=== PATIENT | male | born 1990 | race Caucasian/White ===

== ENCOUNTER 2018-02-21 11:51 | Observation (INO) | payer OTHER ==
[~2018-02-21] VITALS: Ht 177.8 cm; Wt 69.0 kg
[~2018-02-21 11:51] MED LIST: CARA1TAB6 PO; PROT40TA PO; TYLE325T PO; ZOFR4TAB3 SL
[2018-02-21 12:03] VITALS: BP 119/61; PULSE 70; RESP 14; TEMP 98.6; O2SAT 99
[2018-02-21 13:19] VITALS: BP 132/71; PULSE 71; RESP 18; TEMP 99.5; O2SAT 99
--- NOTE | 2018-02-21 13:35 | PD ---
HPI Chief Complaint: GI Complaint Time Seen by Provider: 13:18 Travel History International Travel<30 days: No Contact w/Intl Traveler<30days: No Traveled to known affect area: No History of Present Illness HPI Patient is a 27 year old male presents to the ER for evaluation of emesis/ regurgitation. patient states his symptoms started 5 days ago after eating a sausage. He states since then he's had problems keeping food down. He states that finally he has been able to tolerated clear liquids but anything more substantial comes back up within 30 seconds of ingestion. Patient denies drooling. Also endorses fever to 102F. Had some epigastric pain which has largely resolved since ER visit 2 days ago. Patient was seen at our ER facility 2 days ago in [place]. He was febrile then to 102.8. Workup included basic labs, ct scan which was reassuring. Instructed to follow up with a GI doctor but when he called could not get in for several weeks. Patient was prescribed sucralfate, zofran, protonix which he states has been taking and it got rid of his pain and nausea but still unable to tolerate PO. He states that since he cannot keep anything down decided to come in to be seen again. PFSH Past Medical History Medical History: Denies Significant Hx Past Surgical History Surgical History: No Previous Surgery Social History Alcohol Use: No Tobacco Use: No Substance Use: No Allergies-Medications (Allergen,Severity, Reaction): Coded Allergies: No Known Allergies (Verified Allergy, Unknown, 02/19/18) Reported Meds & Prescriptions Reported Meds & Active Scripts Active Tylenol (Acetaminophen) 325 Mg Tab 650 Mg PO Q6H PRN Zofran Odt (Ondansetron Odt) 4 Mg Tab 4 Mg SL Q6HR PRN Protonix (Pantoprazole Sodium) 40 Mg Tab 40 Mg PO DAILY Carafate (Sucralfate) 1 Gram Tab 1 Gm PO TID On empty stomach Review of Systems Except as stated in HPI: all other systems reviewed are Neg Physical Exam Narrative GENERAL: WD/WN in nad. SKIN: Warm and dry. HEAD: Atraumatic. Normocephalic. EYES: Pupils equal and round. No scleral icterus. No injection or drainage. ENT: No nasal bleeding or discharge. Mucous membranes pink and moist. NECK: Trachea midline. No JVD. CARDIOVASCULAR: Regular rate and rhythm. RESPIRATORY: No accessory muscle use. Clear to auscultation. Breath sounds equal bilaterally. GASTROINTESTINAL: Abdomen soft, non-tender, nondistended. Hepatic and splenic margins not palpable. MUSCULOSKELETAL: Extremities without clubbing, cyanosis, or edema. No obvious deformities. NEUROLOGICAL: Awake and alert. No obvious cranial nerve deficits. Motor grossly within normal limits. Five out of 5 muscle strength in the arms and legs. Normal speech. PSYCHIATRIC: Appropriate mood and affect; insight and judgment normal. Data Data Last Documented VS Vital Signs Date Time Temp Pulse Resp B/P (MAP) Pulse Ox O2 Delivery O2 Flow Rate FiO2 02/21/18 14:15 78 16 116/68 (84) 99 Room Air 02/21/18 13:19 99.5 Orders Orders Basic Metabolic Panel (Bmp) (02/21/18 13:34) Complete Blood Count With Diff (02/21/18 13:34) Iv Access Insert/Monitor (02/21/18 13:34) Ecg Monitoring (02/21/18 13:34) Oximetry (02/21/18 13:34) Sodium Chloride 0.9% Flush (Ns Flush) (02/21/18 13:45) Consult Gastroenterology (02/21/18 ) Consent (02/21/18 14:17) Diet Npo Except Meds (02/22/18 Breakfast) Pantoprazole Inj (Protonix Inj) (02/21/18 14:30) (Hub Use Only)Inp Phy Cons/Ref (02/21/18 ) Admit Order (Ed Use Only) (02/21/18 ) Place In Observation (02/21/18 ) Vital Signs (Adult) HITESH.Q4H (02/21/18 15:00) Activity Oob With Assistance (02/21/18 15:00) Labs Laboratory Tests Test 02/21/18 13:45 White Blood Count 5.2 TH/MM3 Red Blood Count 4.95 MIL/MM3 Hemoglobin 14.9 GM/DL Hematocrit 43.6 % Mean Corpuscular Volume 88.0 FL Mean Corpuscular Hemoglobin 30.1 PG Mean Corpuscular Hemoglobin Concent 34.2 % Red Cell Distribution Width 12.3 % Platelet Count 162 TH/MM3 Mean Platelet Volume 8.0 FL Neutrophils (%) (Auto) 71.3 % Lymphocytes (%) (Auto) 15.6 % Monocytes (%) (Auto) 12.0 % Eosinophils (%) (Auto) 0.7 % Basophils (%) (Auto) 0.4 % Neutrophils # (Auto) 3.7 TH/MM3 Lymphocytes # (Auto) 0.8 TH/MM3 Monocytes # (Auto) 0.6 TH/MM3 Eosinophils # (Auto) 0.0 TH/MM3 Basophils # (Auto) 0.0 TH/MM3 CBC Comment DIFF FINAL Differential Comment Blood Urea Nitrogen 13 MG/DL Creatinine 0.96 MG/DL Random Glucose 80 MG/DL Calcium Level 8.9 MG/DL Sodium Level 132 MEQ/L Potassium Level 3.8 MEQ/L Chloride Level 95 MEQ/L Carbon Dioxide Level 25.6 MEQ/L Anion Gap 11 MEQ/L Estimat Glomerular Filtration Rate 94 ML/MIN [facility] Medical Decision Making Medical Screen Exam Complete: Yes Emergency Medical Condition: Yes Differential Diagnosis Regurgitation, stricture, food bolus impaction, GERD, PUD, esophagitis. Narrative Course Patient roomed in ED. On exam he appears well though his history suggests significant esophagitis and/or partial obstruction. Unlikely complete obstruction as he is tolerating secretions. Discussed with Dr. Menard who agrees for inpatient consult. Awaiting [facility] for obs status. Repeat labs reassuring. Diagnosis Primary Impression: N&V (nausea and vomiting) Additional Impressions: Epigastric pain Fever Admitting Information Admitting Physician Requests: Observation Condition: Stable Miki Soto MD Feb 21, 2018 13:34
[2018-02-21 13:41] VITALS: O2SAT 98
[2018-02-21 14:03] LABS: AUTOMATED NEUTROPHIL # 3.7 TH/MM3 (1.8-7.7); BASOPHIL % 0.4 % (0.0-2.0); EOSINOPHIL % 0.7 % (0.0-4.0); HEMATOCRIT 43.6 % (39.0-51.0); HEMOGLOBIN 14.9 GM/DL (13.0-17.0); LYMPH % 15.6 % (9.0-44.0); LYMPHOCYTE # 0.8 TH/MM3 (1.0-4.8); MEAN CORPUSCULAR HEMOGLOBIN 30.1 PG (27.0-34.0); MEAN CORPUSCULAR HGB CONC 34.2 % (32.0-36.0); MONOCYTE # 0.6 TH/MM3 (0-0.9); NEUT % 71.3 % (16.0-70.0); PLATELET COUNT 162 TH/MM3 (150-450); RED BLOOD COUNT 4.95 MIL/MM3 (4.50-5.90); RED CELL DISTRIBUTION WIDTH 12.3 % (11.6-17.2); WHITE BLOOD COUNT 5.2 TH/MM3 (4.0-11.0)
[2018-02-21 14:15] VITALS: BP 116/68; PULSE 78; RESP 16; O2SAT 99
--- NOTE | 2018-02-21 14:17 | PD.CONS ---
HPI History of Present Illness This is a 27 year old M who denies any PMH who presented to the ER with complaints of epigastric pain and hematemesis. Pt states symptoms began on Sunday night after eating a Cajun sausage hotdog, he woke up in the middle of the night with awful heartburn, took a Tums with good relief and went back to sleep. On Sunday he tried eating an egg McMuffin for breakfast and Mac n Cheese for lunch and states both burnt so bad going down. Reports he began vomiting on Sunday and on Sunday he began noticing blood in his vomit so he came to the ER for further evaluation. Reports associated fever and chills, fever of 103 on Sunday. Pt had a CT scan of his abdomen and pelvis which revealed no etiology for the pain, H/H was WNL. He was discharged home with a prescription for Tylenol, Zofran, Carafate, and Protonix. Pt reports symptoms did not improve and he continues to have hematemesis and epigastric pain so he returned. States pain is constant with intermittent periods of increasing intensity, describes pain as burning. Denies ETOH, smoking, illicit drugs, NSAID use. Has never had EGD or colonoscopy. Reports grandmother had a stomach ulcer but otherwise denies any significant GI family history. (Zunilda Garza) PFSH Past Medical History Denies Past Surgical History Denies (Zunilda Garza) Coded Allergies: No Known Allergies (Verified Allergy, Unknown, 02/19/18) Medications No known medications Social History Denies ETOH Denies smoking Denies illicit drug use (Zunilda Garza) Review of Systems Gastrointestinal: COMPLAINS OF: Abdominal pain, Nausea, Vomiting, Heartburn, Hematemesis, DENIES: Black stools, Bloody stools, Constipation, Diarrhea, Difficulty Swallowing, Anorexia, Odynophagia, Swelling of Abdomen (Zunilda Garza) GI Exam Vitals I&O Vital Signs Date Time Temp Pulse Resp B/P (MAP) Pulse Ox O2 Delivery O2 Flow Rate FiO2 02/21/18 13:41 98 Room Air 02/21/18 13:19 99.5 71 18 132/71 (91) 99 Room Air 02/21/18 12:03 98.6 70 14 119/61 (80) 99 Laboratory Test 02/21/18 13:45 White Blood Count 5.2 TH/MM3 Red Blood Count 4.95 MIL/MM3 Hemoglobin 14.9 GM/DL Hematocrit 43.6 % Mean Corpuscular Volume 88.0 FL Mean Corpuscular Hemoglobin 30.1 PG Mean Corpuscular Hemoglobin Concent 34.2 % Red Cell Distribution Width 12.3 % Platelet Count 162 TH/MM3 Mean Platelet Volume 8.0 FL Neutrophils (%) (Auto) 71.3 % Lymphocytes (%) (Auto) 15.6 % Monocytes (%) (Auto) 12.0 % Eosinophils (%) (Auto) 0.7 % Basophils (%) (Auto) 0.4 % Neutrophils # (Auto) 3.7 TH/MM3 Lymphocytes # (Auto) 0.8 TH/MM3 Monocytes # (Auto) 0.6 TH/MM3 Eosinophils # (Auto) 0.0 TH/MM3 Basophils # (Auto) 0.0 TH/MM3 CBC Comment DIFF FINAL Differential Comment Physical Examination HEENT: Normocephalic; atraumatic CHEST: Even/unlabored CARDIAC: RRR ABDOMEN: Soft, nondistended, mild epigastric tenderness, bowel sounds active EXTREMITIES: No clubbing, cyanosis, or edema. SKIN: Normal; no rash; no jaundice. PLANER OPERATOR: Alert and oriented times three. (Zunilda Garza) Assessment and Plan Plan Assessment: - Epigastric pain with reports of hematemesis- symptoms began on Sunday night after eating a Cajun sausage hotdog. Reports waking up in the middle of the night with bad heartburn, took a Tums with good relief. On Sunday was unable to eat because of pain in his stomach with eating. States could feel even water go down his throat and it burned. Associated fever and chills, states fever of 103 on Sunday. Seen in ER on Sunday with same complaints. CT of abdomen and pelvis does not reveal etiology for pain. Labs WNL. Pt discharged with Rx for Zofran, Protonix, Carafate, and Tylenol Denies history of GIB. Denies ETOH, smoking, illicit drug use, NSAIDs. Has never had EGD or colonoscopy. Plan: EGD tomorrow Obtain consent NPO after MN Ok for clear liquids today Protonix Monitor labs Further recommendations based on exam findings Pt has been seen and examined by myself and Dr. Menard and this note is written on her behalf (Zunilda Garza) Physician Comments seen, examined agree with above (Luz Menard MD) Zunilda Garza Feb 21, 2018 14:17 Luz Menard MD Feb 21, 2018 18:33
[2018-02-21 14:30] LABS: BICARBONATE 25.6 MEQ/L (21.0-32.0); CALCIUM 8.9 MG/DL (8.5-10.1); CREATININE 0.96 MG/DL (0.60-1.30)
[2018-02-21] MEDS: PANTOPRAZOLE SODIUM 40 MG VIAL IV PUSH SCH ×2 (15:28→21:28)
--- NOTE | 2018-02-21 15:44 | HHI.HP ---
[facility] Primary Care Physician Unknown Admission Diagnosis N/V Diagnoses: Chief Complaint: nausea/vomiting Travel History International Travel<30 Days: No Contact w/Intl Traveler <30 Da: No Traveled to Known Affected Are: No History of Present Illness 27 y/o WM admitted for hematemesis. Patient was in usual state of health until about 5 days ago when he began experiencing postprandial vomiting. This started after eating a cage and hot dog. He began experiencing intermittent bouts of abdominal pain and epigastric pain that would occasionally radiate to the chest. Describes the pain sensation as being 10/10 at its worse with the initial sharp sensation then to a burning sensation. Went to the [facility] emergency department on Sunday because his vomiting turned into hematemesis, was treated and discharged home with anti-dyspeptic medications. After going home he still had vomiting but to less frequency but more blood. Reports having subjective fevers but does remember measuring 101 fever yesterday. Says he took some ibuprofen which did not help the pain but did help the fever. Due to persistent postprandial vomiting he came to the emergency department. Denies having any nausea at all, is able to tolerate water but not solids. Reports trying to eat any solids and then within a few seconds he vomits. Denies having any bowel movements. Says he has not had any real meal intake since last Sunday. Patient had a CT abdomen and a chest x-ray done at the emergency department 2 days ago which did not show any acute findings. Denies ever having an EGD done in the past. Denies having any nausea vomiting diarrhea or black stools or red stools. 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 EYES: No scleral icterus. No injection or drainage. ENT: No nasal bleeding or discharge. Mucous membranes pink and moist. CARDIOVASCULAR: Regular rate and rhythm. no murmurs RESPIRATORY: No accessory muscle use. Clear to auscultation. Breath sounds equal bilaterally. GASTROINTESTINAL: Mild abdominal soreness, otherwise no rosy distention, soft otherwise Extremities: No clubbing, cyanosis, or edema. No obvious deformities. MUSCULOSKELETAL: grossly intact ROM with 5/5 strength in upper and lower extremities proximally; adequate muscle bulk and tone for age and habitus NEUROLOGICAL: Awake and alert. No obvious cranial nerve deficits. No facial droop nor slurred speech noted. PSYCHIATRIC: Appropriate mood and affect; insight and judgment normal. Laboratory Laboratory Tests Test 02/21/18 13:45 White Blood Count 5.2 Red Blood Count 4.95 Hemoglobin 14.9 Hematocrit 43.6 Mean Corpuscular Volume 88.0 Mean Corpuscular Hemoglobin 30.1 Mean Corpuscular Hemoglobin Concent 34.2 Red Cell Distribution Width 12.3 Platelet Count 162 Mean Platelet Volume 8.0 Neutrophils (%) (Auto) 71.3 Lymphocytes (%) (Auto) 15.6 Monocytes (%) (Auto) 12.0 Eosinophils (%) (Auto) 0.7 Basophils (%) (Auto) 0.4 Neutrophils # (Auto) 3.7 Lymphocytes # (Auto) 0.8 Monocytes # (Auto) 0.6 Eosinophils # (Auto) 0.0 Basophils # (Auto) 0.0 CBC Comment DIFF FINAL Differential Comment Blood Urea Nitrogen 13 Creatinine 0.96 Random Glucose 80 Calcium Level 8.9 Sodium Level 132 Potassium Level 3.8 Chloride Level 95 Carbon Dioxide Level 25.6 Anion Gap 11 Estimat Glomerular Filtration Rate 94 Result Diagram: 02/21/18 1345 02/21/18 1345 Caprini VTE Risk Assessment Caprini VTE Risk Assessment: No/Low Risk (score <= 1) Caprini Risk Assessment Model Point Value = 1 Point Value = 2 Point Value = 3 Point Value = 5 Age 41-60 Minor surgery BMI > 25 kg/m2 Swollen legs Varicose veins or History of unexplained or recurrent spontaneous Oral contraceptives or hormone replacement Sepsis (< 1 month) Serious lung disease, including pneumonia (< 1 month) Abnormal pulmonary function Acute myocardial infarction Congestive heart failure (< 1 month) History of inflammatory bowel disease Medical patient at bed rest Age 61-74 Arthroscopic surgery Major open surgery (> 45 min) Laparoscopic surgery (> 45 min) Malignancy Confined to bed (> 72 hours) Immobilizing plaster cast Central venous access Age >= 75 History of VTE Family history of VTE Factor V Leiden Prothrombin [id number] Lupus anticoagulant Anticardiolipin antibodies Elevated serum homocysteine Heparin-induced thrombocytopenia Other congenital or acquired thrombophilia Stroke (< 1 month) Elective arthroplasty Hip, pelvis, or leg fracture Acute spinal cord injury (< 1 month) Prophylaxis Regimen Total Risk Factor Score Risk Level Prophylaxis Regimen 0-1 Low Early ambulation 2 Moderate Order ONE of the following: *Sequential Compression Device (SCD) *Heparin 5000 units SQ BID 3-4 Higher Order ONE of the following medications: *Heparin 5000 units SQ TID *Enoxaparin/Lovenox 40 mg SQ daily (WT < 150 kg, CrCl > 30 mL/min) *Enoxaparin/Lovenox 30 mg SQ daily (WT < 150 kg, CrCl > 10-29 mL/min) *Enoxaparin/Lovenox 30 mg SQ BID (WT < 150 kg, CrCl > 30 mL/min) AND/OR *Sequential Compression Device (SCD) 5 or more Highest Order ONE of the following medications: *Heparin 5000 units SQ TID (Preferred with Epidurals) *Enoxaparin/Lovenox 40 mg SQ daily (WT < 150 kg, CrCl > 30 mL/min) *Enoxaparin/Lovenox 30 mg SQ daily (WT < 150 kg, CrCl > 10-29 mL/min) *Enoxaparin/Lovenox 30 mg SQ BID (WT < 150 kg, CrCl > 30 mL/min) AND *Sequential Compression Device (SCD) Assessment and Plan Assessment and Plan 27 y/o WM Admitted possible acute esophageal obstruction - Zofran, abdominal CT performed 2 days ago was negative - possible obstruction with possible perforation - We will obtain a chest x-ray to look for free air - N.p.o. for now, consulting GI, EGD planned - if fever occurs while inpt, obtain BC's and start cipro and flagyl OR zosyn Hematemesis - PPI intake, stable h/h for now, suspect possible esophageal tear (hallie hunter) /obstruction -CBC in a.m. early ambulation Scooby Bunrs MD Feb 21, 2018 15:44
--- NOTE | 2018-02-21 16:00 | RADRPT ---
EXAM DATE: 02/21/2018 3:58 PM EDT AGE/SEX: 27 years / Male INDICATIONS: Nausea, vomiting, and epigastric pain for 6 days. CLINICAL DATA: This is the patient's initial encounter. Patient reports that signs and symptoms have been present for 4 - 6 days and indicates a pain score of 5/10. MEDICAL/SURGICAL HISTORY: None. None. COMPARISON: No prior exams available for comparison. FINDINGS: PA and lateral views of the chest demonstrate the lungs to be symmetrically aerated without evidence of mass, infiltrate or effusion. The cardiomediastinal contours are unremarkable. Osseous structures are intact. CONCLUSION: No acute cardiopulmonary process. Electronically signed by: Ran May MD 02/21/2018 3:58 PM EDT
[2018-02-21 16:46] VITALS: BP 125/71; PULSE 72; RESP 18; TEMP 99.2; O2SAT 98
[2018-02-21] MEDS: SODIUM CHLORIDE 0.9% FLUSH 10 ML FLUSH IV FLUSH PRN (18:19)
[2018-02-21] MEDS: SODIUM CHLOR 0.9% 1000 ML INJ 1,000 ML IV SCH (18:19)
[2018-02-21 20:10] VITALS: BP 121/56; PULSE 76; RESP 16; TEMP 100.6; O2SAT 98
[2018-02-21] MEDS ORDERED: ACETAMINOPHEN 325 MG TAB PO PRN (21:30)
[2018-02-22 01:19] VITALS: BP 117/67; PULSE 67; RESP 16; TEMP 98.4; O2SAT 99
[2018-02-22] MEDS ORDERED: ALUMINUM/MAGNESIUM/SIMETH 30 ML CUP PO ONE (05:00)
[2018-02-22] MEDS: SODIUM CHLOR 0.9% 1000 ML INJ 1,000 ML IV SCH ×2 (06:09→20:10)
[2018-02-22 06:27] LABS: HEMATOCRIT 39.4 % (39.0-51.0); MEAN CELL VOLUME 86.3 FL (80.0-100.0); MEAN CORPUSCULAR HEMOGLOBIN 30.7 PG (27.0-34.0); MEAN CORPUSCULAR HGB CONC 35.6 % (32.0-36.0); PLATELET COUNT 164 TH/MM3 (150-450); RED BLOOD COUNT 4.56 MIL/MM3 (4.50-5.90); RED CELL DISTRIBUTION WIDTH 12.3 % (11.6-17.2); WHITE BLOOD COUNT 5.9 TH/MM3 (4.0-11.0)
[2018-02-22 06:52] LABS: BICARBONATE 22.8 MEQ/L (21.0-32.0); CALCIUM 8.5 MG/DL (8.5-10.1); CREATININE 0.89 MG/DL (0.60-1.30)
--- NOTE | 2018-02-22 08:12 | HHI.PR ---
Subjective Remarks Nursing denies any deterioration since last night except for fever of 100.6 for which Tylenol had been given. Patient himself reports he did vomit this morning. He denies feeling any new cough or shortness of breath or runny nose dysuria or stiff neck or really bad headache. Reported feeling a little hot last night. Says his chest is hurting intermittently, says while drinking water helps but being n.p.o. makes his chest pain worse. Objective Vital Signs Date Time Temp Pulse Resp B/P (MAP) Pulse Ox O2 Delivery O2 Flow Rate FiO2 02/22/18 01:19 98.4 67 16 117/67 (84) 99 02/21/18 20:10 100.6 76 16 121/56 (77) 98 02/21/18 16:46 99.2 72 18 125/71 (89) 98 02/21/18 16:24 02/21/18 14:15 78 16 116/68 (84) 99 Room Air 02/21/18 13:41 98 Room Air 02/21/18 13:19 99.5 71 18 132/71 (91) 99 Room Air 02/21/18 12:03 98.6 70 14 119/61 (80) 99 I/O 02/21/18 02/21/18 02/21/18 02/22/18 02/22/18 02/22/18 07:00 15:00 23:00 07:00 15:00 23:00 Intake Total 240 ml 948 ml Balance 240 ml 948 ml Intake Oral 240 ml IV Total 948 ml Result Diagram: 02/22/18 0544 02/22/18 0544 Objective Remarks Lungs are clear bilaterally, unlabored breathing Heart sounds regular rate rhythm, no murmurs Abdomen soft, nontender, nondistended A/P Assessment and Plan Admitted possible acute esophageal obstruction - Zofran, - possible obstruction with possible perforation -Chest x-ray is negative for any free air -EGD planned by GI this morning - if fever occurs while inpt, obtain BC's and start cipro and flagyl OR zosyn Hematemesis - PPI -CBC stable Fever -Low-grade fever, possibly due to esophageal process, otherwise no other obvious symptomatology is present, - will obtain blood cultures, hold off on antibiotics especially since white count is normal and vital signs otherwise are stable Scooby Burns MD Feb 22, 2018 08:12
[2018-02-22 08:14] VITALS: BP 120/70; PULSE 70; RESP 20; TEMP 98.2; O2SAT 96
[2018-02-22] MEDS: PANTOPRAZOLE SODIUM 40 MG VIAL IV PUSH SCH ×2 (09:48→20:07)
[2018-02-22 10:41] LABS: ALBUMIN 3.8 GM/DL (3.4-5.0); DIRECT BILIRUBIN ADULT 0.1 MG/DL (0.0-0.2); INDIRECT BILIRUBIN 0.6 MG/DL (0.0-0.8); TOTAL BILIRUBIN ADULT 0.7 MG/DL (0.2-1.0); TOTAL PROTEIN 8.3 GM/DL (6.4-8.2)
--- NOTE | 2018-02-22 11:38 | GIPROC ---
[facility] [address] [facility]. [facility], [address] EGD PROCEDURE REPORT EXAM DATE: 02/22/2018 PATIENT NAME: Jh Horton MR #: [id number] BIRTHDATE: 1990 ATTENDING: Luz Menard MD ORDER #: [id number] COMMUNITY SERVICE SPECIALIST: Lilo Acevedo and Greg Bryson STATUS: inpatient INDICATIONS: The patient is a 27 yr old male here for an EGD due to odynophagia, dysphagia , nausea, vomiting PROCEDURE PERFORMED: EGD w/ biopsy MEDICATIONS: None and Per Anesthesia. TOPICAL ANESTHETIC: none CONSENT: The patient understands the risks and benefits of the procedure and understands that these risks include, but are not limited to: sedation, allergic reaction, infection, perforation and/or bleeding. Alternative means of evaluation and treatment include, among others: physical exam, x-rays, and/or surgical intervention. The patient elects to proceed with this endoscopic procedure. medical equipment was checked for proper function. Hand hygiene and appropriate measures for infection prevention was taken. After the risks, benefits and alternatives of the procedure were thoroughly explained, Informed consent was verified, confirmed and timeout was successfully executed by the treatment team. The patient was anesthetized with topical anesthesia and the Pentax [id number] endoscope was introduced through the mouth and advanced to the second portion of the duodenum. Retroflexed views revealed a hiatal hernia The gastroscope was then slowly withdrawn and removed. Gastritis antrum-biopsy severe esophagitis in distal and midesophagus -biopsy r/o CMV, herpes , karen. ADVERSE EVENTS: There were no complications. IMPRESSIONS: 1. Gastritis antrum-biopsy severe esophagitis in distal and midesophagus -biopsy r/o CMV, herpes , kraen 2. Retroflexed views revealed a hiatal hernia RECOMMENDATIONS: 1. Await biopsy results. Biopsy results will not be ready for 7-10 days. If you don't hear from us in two weeks, call our office for biopsy results. 2. Anti-reflux regimen 3. Continue PPI 4. Carafate liquid gi cocktail PATIENT CONDITION: stable DISPOSITION: Inpatient REPEAT EXAM: Return 4 weeks EGD Luz Menard MD eSigned: Luz Menard MD 02/22/2018 11:38 AM cc:
[2018-02-22] MEDS ORDERED: LIDOCAINE VISCOUS 2% SOLN 15 ML UDC SWISH-SWAL PRN (11:45)
[2018-02-22] MEDS ORDERED: PROPOFOL 200 MG/20 ML AMP IV ONE (12:00)
[2018-02-22] MEDS: SUCRALFATE 1 GM/10 ML CUP PO SCH ×3 (14:43→21:00)
[2018-02-22] MEDS: MORPHINE SULFATE 4 MG/ML INJ IV PUSH PRN ×2 (14:44→20:13)
[2018-02-22 17:02] VITALS: BP 128/60; PULSE 68; RESP 18; TEMP 98.2; O2SAT 96
[2018-02-22] MEDS: SODIUM CHLORIDE 0.9% FLUSH 10 ML FLUSH IV FLUSH PRN (20:11)
[2018-02-22 20:14] VITALS: BP 123/63; PULSE 85; RESP 16; TEMP 99.1; O2SAT 99
[2018-02-22] MEDS ORDERED: FAMOTIDINE 20 MG/2 ML VIAL IV PUSH ONE (22:45)
[2018-02-22] MEDS ORDERED: MORPHINE SULFATE 4 MG/ML INJ IV PUSH ONE (23:00)
[2018-02-23 00:15] VITALS: BP 109/64; PULSE 70; RESP 16; TEMP 98.5; O2SAT 98
[2018-02-23] MEDS: MORPHINE SULFATE 4 MG/ML INJ IV PUSH PRN (03:16)
[2018-02-23 03:59] VITALS: BP 107/64; PULSE 75; RESP 16; TEMP 98.2; O2SAT 98
[2018-02-23] MEDS ORDERED: HYDROmorphone HCL PF 2 MG/ML VIAL IV SCH (06:00)
[2018-02-23] MEDS: SODIUM CHLOR 0.9% 1000 ML INJ 1,000 ML IV SCH ×2 (06:06→09:02)
[2018-02-23 07:17] VITALS: BP 123/74; PULSE 65; RESP 20; TEMP 97.9
--- NOTE | 2018-02-23 08:08 | HHI.PR ---
Subjective Remarks Pt seen and examined in f/u for hematemesis. No further episodes of vomiting or hematemesis. Denies nausea or chest pain. Epigastric pain has significantly improved though still feels a slight burning. Able to tolerate clears. Hoping to be able to go home today. Objective Vital Signs Date Time Temp Pulse Resp B/P (MAP) Pulse Ox O2 Delivery O2 Flow Rate FiO2 02/23/18 07:17 97.9 65 20 123/74 (90) 02/23/18 06:41 16 02/23/18 03:59 98.2 75 16 107/64 (78) 98 02/23/18 03:30 16 02/23/18 00:15 98.5 70 16 109/64 (79) 98 02/22/18 20:14 99.1 85 16 123/63 (83) 99 02/22/18 17:02 98.2 68 18 128/60 (82) 96 02/22/18 12:00 130/75 (93) 02/22/18 11:40 98.6 60 20 130/67 (88) 98 02/22/18 08:14 98.2 70 20 120/70 (87) 96 I/O 02/22/18 02/22/18 02/22/18 02/23/18 02/23/18 02/23/18 07:00 15:00 23:00 07:00 15:00 23:00 Intake Total 948 ml 250 ml Balance 948 ml 250 ml IV Total 948 ml Other 250 ml Result Diagram: 02/22/1844 02/22/18543 Objective Remarks GENERAL: WN, WD male resting in bed in [facility]. SKIN: Warm and dry. HEENT: AT/NC. Pupils equal and round. MMM. NECK: Supple no tender LAD or JVD. HEART: RRR no m/r/g. LUNGS: CTAB without wheezes or crackles. ABDOMEN: +BS, soft, NT, ND. EXTREMITIES: No LE edema. 2+ pedal pulses. NEURO: Awake and alert. Nonfocal. PSYCH: Appropriate mood and affect. A/P Assessment and Plan 27 YOWM with history of gastric ulcers admitted 02/21 for hematemesis. 1. Hematemesis - H&H stable - GI consulted, EGD done yesterday showing gastritis and severe esophagitis with biopsies collected - CXR negative - Continue PPI and Carafate - Cleared per GI with instructions to f/u in 4 weeks to repeat EGD - ADAT Disposition: D/C home today if tolerates diet Laura Parada MD Feb 23, 2018 08:08
[2018-02-23] MEDS: PANTOPRAZOLE SODIUM 40 MG VIAL IV PUSH SCH (09:01)
[2018-02-23] MEDS: SUCRALFATE 1 GM/10 ML CUP PO SCH (09:01)
--- NOTE | 2018-02-23 09:48 | HHI.GIFU ---
Subjective Remarks Pt is sitting up in bed, pain much better today, tolerating diet okay. Hoping to go home today Objective Vitals I&O Vital Signs Date Time Temp Pulse Resp B/P (MAP) Pulse Ox O2 Delivery O2 Flow Rate FiO2 02/23/18 07:17 97.9 65 20 123/74 (90) 02/23/18 06:41 16 02/23/18 03:59 98.2 75 16 107/64 (78) 98 02/23/18 03:30 16 02/23/18 00:15 98.5 70 16 109/64 (79) 98 02/22/18 20:14 99.1 85 16 123/63 (83) 99 02/22/18 17:02 98.2 68 18 128/60 (82) 96 02/22/18 12:00 130/75 (93) 02/22/18 11:40 98.6 60 20 130/67 (88) 98 I/O 02/22/18 02/22/18 02/22/18 02/23/18 02/23/18 02/23/18 07:00 15:00 23:00 07:00 15:00 23:00 Intake Total 948 ml 250 ml Balance 948 ml 250 ml IV Total 948 ml Other 250 ml Laboratory Laboratory Tests Test 02/22/18 17:04 Activated Partial Thromboplast Time 27.0 Date/Time Source Procedure Growth Status 02/22/18 09:28 Blood Peripheral Aerobic Blood Culture Pending Received 02/22/18 09:28 Blood Peripheral Anaerobic Blood Culture Pending Received Imaging Last Impressions Chest X-Ray 02/21/18 0000 Signed Impressions: CONCLUSION: No acute cardiopulmonary process. Physical Exam HEENT: Pupils round and reactive to light; normocephalic; atraumatic; no jaundice. Throat is clear. CHEST: Chest is clear to auscultation and percussion. CARDIAC: Regular rate and rhythm with no murmur gallop or rubs. ABDOMEN: Soft, nondistended, nontender; no hepatosplenomegaly; bowel sounds are present in all four quadrants. EXTREMITIES: No clubbing, cyanosis, or edema. SKIN: Normal; no rash; no jaundice. BILLING COLLECTIONS SPECIALIST: No focal deficits; alert and oriented times three. Assessment and Plan Plan Assessment: - Epigastric pain with reports of hematemesis- symptoms began on Sunday night after eating a [employer] sausage hotdog. Reports waking up in the middle of the night with bad heartburn, took a Tums with good relief. On Sunday was unable to eat because of pain in his stomach with eating. States could feel even water go down his throat and it burned. Associated fever and chills, states fever of 103 on Sunday. Seen in ER on Sunday with same complaints. CT of abdomen and pelvis does not reveal etiology for pain. Labs WNL. Pt discharged with Rx for Zofran, Protonix, Carafate, and Tylenol Denies history of GIB. Denies ETOH, smoking, illicit drug use, NSAIDs. Has never had EGD or colonoscopy. 02/23/18 - S/P EGD on 02/22/18 ---> There were no complications. IMPRESSIONS: 1. Gastritis antrum-biopsy severe esophagitis in distal and midesophagus -biopsy r/o CMV, herpes , karen 2. Retroflexed views revealed a hiatal hernia Plan: EGD in 4 weeks Await bx results f/u with Gi upon discharge ok to sc home Protonix Pt has been seen and examined by myself and Dr. Menard and this note is written on her behalf Nelly Armas Feb 23, 2018 09:48
[2018-02-23] MEDS ORDERED: PROT40TA PO (10:05)
[2018-02-23] MEDS ORDERED: CARA1TAB6 PO (10:05)
--- NOTE | 2018-02-23 10:06 | HHI.DCPOC ---
Discharge Care Plan Diagnosis: (1) Esophagitis (2) Gastritis Goals to Promote Your Health * To prevent worsening of your condition and complications * To maintain your health at the optimal level Directions to Meet Your Goals Take your medications as prescribed Follow your dietary instruction Follow activity as directed Avoid NSAIDs Keep your appointments as scheduled Take your immunizations and boosters as scheduled If your symptoms worsen call your PCP, if no PCP go to Urgent Care Center or Emergency Room Smoking is Dangerous to Your Health. Avoid second hand smoke Call the 24-hour hour crisis hotline for domestic abuse at Laura Butler MD Feb 23, 2018 10:06
[2018-02-23 12:00] VITALS: BP 117/79; PULSE 67; RESP 20; TEMP 99.6; O2SAT 98
== END 2018-02-23 13:23 | disposition home or self-care (01) ==
LOC: NEPD 11:51 → NEDA 15:01 → NEPFCDU 16:23
PROVIDERS: ADMIT Family Medicine; ATTEND Family Medicine
DX: K20.9 Esophagitis, unspecified (principal); K29.70 Gastritis, unspecified, without bleeding; K44.9 Diaphragmatic hernia without obstruction or gangrene; R50.9 Fever, unspecified; R10.13 Epigastric pain; Z87.11 Personal history of peptic ulcer disease
CPT/HCPCS: 00731; 43239; 71046; 80048; 80076; 85025; 85027; 85730; 87040; 88305; 88312; 96361; 96374; 96375; 96376; 99285; C9113; G0378; J1170; J2270; J7030